=== PATIENT | female | born 2000 | race Caucasian/White ===

== ENCOUNTER 2023-09-22 19:15 | Emergency (ER) | payer MEDICAID ==
[~2023-09-22] VITALS: Ht 157.5 cm; Wt 95.5 kg
[2023-09-22 21:51] VITALS: BP 120/78; PULSE 92; RESP 16; TEMP 98.4; O2SAT 99
[2023-09-25 12:11] LABS: CHLAMYDIA TRACHOMATIS, NAA Negative (Negative)
== END 2023-09-22 21:54 | disposition home or self-care (01) ==
LOC: ER 19:17
DX: A64 Unspecified sexually transmitted disease (principal); A54.9 Gonococcal infection, unspecified
CPT/HCPCS: 36415; 87491; 99283